=== PATIENT | female | born 1950 | race Two or more races ===

== ENCOUNTER 2024-11-22 15:30 | Outpatient (RCR) | payer MEDICARE, MEDICAID, SELFPAY ==
--- NOTE | 2024-11-11 15:15 | PT.OIERPT ---
PT OP Initial Eval Patient Information Outpatient Physical Therapy Treatment Date: 11/11/24 Visit Reasons: MSK pain/Fibromyalgia Medical Diagnosis: [id number] Treatment Dx #1: B LE pain Treatment Dx #2: LBP Start of Care: 11/11/24 Date of Onset: 11/11/24 Smoking Status Smoking Status: Never smoker Initial Assessment Subjective: Pt is 73 yr old tamazight speaking female who c/o LBP and B LE pain. Increased pain with prolonged walking >30 mins with increased LBP, standing for about 30 mins and doing HH chores especially mopping. PMH: HTN, DM Imaging: MRI of L/S from 2019 Diffuse lumbar degenerative disc disease , L4-L5 4 mm central lumbar disc bulge, No right side lateralizing disc protrusion noted Pt goal: less pain in the B LE's Objective: ? Trunk ArOM: ? B SB 50% of normal with pain ? Extension: 20% with pain around L4-5, L5-S1 ? Flexion: 10 from floor with LBP ? B rotation: 60% with pain ? R SLR ROM: 45 deg. L SLR: 50 deg with posterior knee neural tension, LBP ? TTP: moderate paraspinals L5-S1 ? Neuro: L SLR: positive Assessment: ? Pt presents with trunk flexion sensitivity and overlying myofascial pain ? and TTP around L5-S1 consistent with ? lower lumbar DDD, stenosis and LE radiculopathy/claudication. Pt requires skilled therapy in order to decrease ? pain and improve sitting/standing tolerance and has fair rehab potential. Short Term and Upper Leather Cutter Goals 1. Ind with HEP ? 2. Improved sitting/standing tolerance to 60 minutes with <=4/10 LBP ? 3. Decreased lower paraspinal TTP from mod to min 4. Improved HH chore tolerance to at least 45 minutes with <=3/10 LBP and no ?increase in LE ssx Treatment Plan 1. Manual therapy ? 2. Therex ? 3. Modalities as indicated, moist heat, ice, estim, mechanical traction Frequency and Duration: 1-2x a week for 12 visits Certification Dates: 11/11/24 to 02/07/25 Procedure Charges OP PT Eval Mod Complex 30 minutes: Yes
--- NOTE | 2024-11-22 15:43 | PT.ODAYNRPT ---
PT Outpatient Daily Note OP Daily Note Outpatient Physical Therapy Treatment Date: 11/22/24 Visit Reasons: MSK pain/Fibromyalgia Subjective: Same as time of evaluation Objective: See F/S for therex Assessment: Moderate tissue irritability of L/S with therex. Fair demo of posterior pelvic tilting. Plan: Continue per POC Length of Time (minutes) of Treatment: 30 Minutes Procedure Charges Therapeutic Exercise 30 minutes: Yes
== END 2024-11-26 23:59 | disposition home or self-care (01) ==
LOC: CPTX 15:30
PROVIDERS: PCP Physician Assistant; Referring Provider Physician Assistant; Visit Provider Physician Assistant
DX: M79.605 Pain in left leg (principal); M79.604 Pain in right leg; M54.50 Low back pain, unspecified; I10 Essential (primary) hypertension; E11.9 Type 2 diabetes mellitus without complications
CPT/HCPCS: 97110; 97162

== ENCOUNTER 2024-12-27 15:00 | Outpatient (RCR) | payer MEDICARE, MEDICAID, SELFPAY ==
--- NOTE | 2024-11-29 15:59 | PT.ODAYNRPT ---
PT Outpatient Daily Note OP Daily Note Outpatient Physical Therapy Treatment Date: 11/29/24 Visit Reasons: MSK pain Subjective: Pt c/o LBP and pain down R thigh. Objective: Please see flow sheet for ther ex list. Assessment: Pt instructed on prone laying with bed height elevated, pt tolerated well but no changes in symptoms, to assess further to determine if there is directional preference. Plan: Continue with pOC. Length of Time (minutes) of Treatment: 30 Minutes Procedure Charges Therapeutic Exercise 30 minutes: Yes
--- NOTE | 2024-12-07 15:37 | PT.ODAYNRPT ---
PT Outpatient Daily Note OP Daily Note Outpatient Physical Therapy Treatment Date: 12/07/24 Visit Reasons: MSK pain Subjective: Doing HEP, continued LBP Objective: See F/S for therex MT: STM L/S paraspinals with flexbar x7' Assessment: Moderate tissue irritability of L/S with manual therapy. Fair demo of posterior pelvic tilting. Plan: Continue per POC Length of Time (minutes) of Treatment: 30 Minutes Procedure Charges Therapeutic Exercise 30 minutes: Yes
--- NOTE | 2024-12-14 17:47 | PT.ODAYNRPT ---
PT Outpatient Daily Note OP Daily Note Outpatient Physical Therapy Treatment Date: 12/14/24 Visit Reasons: MSK pain Subjective: Doing HEP, continued LBP Objective: See F/S for therex MT: STM L/S paraspinals with flexbar x7' Assessment: Moderate tissue irritability of L/S with manual therapy. Fair demo of posterior pelvic tilting. Plan: Continue per POC Procedure Charges Therapeutic Exercise 30 minutes: Yes
--- NOTE | 2024-12-27 16:02 | PT.ODAYNRPT ---
PT Outpatient Daily Note OP Daily Note Outpatient Physical Therapy Treatment Date: 12/27/24 Visit Reasons: MSK pain Subjective: Pt reports she continues to have pain in low back and c/o pain on the back of R thigh. Objective: Please see flow sheet for ther ex list. Assessment: Pain continues to c/o LBP delaying intervention progression in clinic. Plan: Continue with pOC. Length of Time (minutes) of Treatment: 30 Minutes DATA ENTRY TECHNICIAN Service Modifier Method I: Divide the number of min of care provided by the DATA ENTRY TECHNICIAN/CANDY CUTTER HAND by the total min of care provided then multiply by 100. If greater than 11 percent modifier is required. Method II: Divide the total time of care provided to patient by 10 (round to the nearest whole number) and add 1 min. to set the minimum time requirement. If treatment total was 60 min., then 10% of 6 min PT CQ modifier applied: CQ Modifier applied Procedure Charges Therapeutic Exercise 30 minutes: Yes
== END 2024-12-27 23:59 | disposition home or self-care (01) ==
LOC: CPTX 15:00
PROVIDERS: PCP Physician Assistant; Referring Provider Physician Assistant; Visit Provider Physician Assistant
DX: M79.605 Pain in left leg (principal); M79.604 Pain in right leg; M54.50 Low back pain, unspecified; I10 Essential (primary) hypertension; E11.9 Type 2 diabetes mellitus without complications
CPT/HCPCS: 97110

== ENCOUNTER 2025-01-20 11:00 | Outpatient (RCR) | payer MEDICARE, MEDICAID, SELFPAY ==
--- NOTE | 2025-01-03 15:43 | PTNOTE_ITS ---
PT Outpatient Daily Note OP Daily Note Outpatient Physical Therapy Treatment Date: 01/03/25 Visit Reasons: MSK PAIN Subjective: Pt reports back is doing better but continues to have pain on the back of the thighs. Objective: Please see flow sheet for ther ex list. Assessment: Progression of intervention slow due to pt pain. Pt reports some LBP relief with lumbar extension exercises, pt encouraged to continue prone laying and prone on elbows for HEP, pt agreed. Plan: Continue with POC. Length of Time (minutes) of Treatment: 30 Minutes DRIER TRANSFER CAR OPERATOR Service Modifier Method I: Divide the number of min of care provided by the DRIER TRANSFER CAR OPERATOR/ASIC ENGINEER by the total min of care provided then multiply by 100. If greater than 11 percent modifier is required. Method II: Divide the total time of care provided to patient by 10 (round to the nearest whole number) and add 1 min. to set the minimum time requirement. If treatment total was 60 min., then 10% of 6 min PT CQ modifier applied: CQ Modifier applied Procedure Charges Therapeutic Exercise 30 minutes: Yes
--- NOTE | 2025-01-11 16:02 | PTNOTE_ITS ---
PT Outpatient Daily Note OP Daily Note Outpatient Physical Therapy Treatment Date: 01/11/25 Visit Reasons: MSK PAIN Subjective: Pt reports back pain continues to be present and notices she is having more frequent episodes of LE weakness. Objective: Please see flow sheet for ther ex list. Assessment: Pt instructed on repeated lumbar extension resulting, pt able to replicate with good technique encouraged pt to perform for HEP pt agreed. Plan: Continue with pOC. Length of Time (minutes) of Treatment: 30 Minutes APRICOT WASHER Service Modifier Method I: Divide the number of min of care provided by the APRICOT WASHER/MORGAN by the total min of care provided then multiply by 100. If greater than 11 percent modifier is required. Method II: Divide the total time of care provided to patient by 10 (round to the nearest whole number) and add 1 min. to set the minimum time requirement. If treatment total was 60 min., then 10% of 6 min PT CQ modifier applied: CQ Modifier applied Procedure Charges Therapeutic Exercise 30 minutes: Yes
--- NOTE | 2025-01-20 13:11 | PT.ODAYNRPT ---
PT Outpatient Daily Note OP Daily Note Outpatient Physical Therapy Treatment Date: 01/20/25 Visit Reasons: MSK PAIN Subjective: Pt reports having increase pain on R glute and down to the thigh shared that is was worse two days ago to where she could barely walk. Objective: Please see flow sheet for ther ex list Assessment: Pt instructed on repeated lumbar extension in standing, pt responded with decrease intensity in R LE symptoms. Pt given print out of THIERRY exercise and encouraged to perform for HEP. Plan: Assess response to treatment. Length of Time (minutes) of Treatment: 30 Minutes Procedure Charges Therapeutic Exercise 30 minutes: Yes
== END 2025-01-26 23:59 | disposition home or self-care (01) ==
LOC: CPTX 11:00
PROVIDERS: PCP Physician Assistant; Referring Provider Physician Assistant; Visit Provider Physician Assistant
DX: M54.50 Low back pain, unspecified (principal); M79.605 Pain in left leg; M79.604 Pain in right leg
CPT/HCPCS: 97110